=== PATIENT | female | born 1960 | race Caucasian/White ===

== ENCOUNTER 2020-07-13 15:26 | Outpatient (REF) | payer BC, SELFPAY ==
--- NOTE | 2020-07-13 14:40 | PAPFT_PTH ---
PATIENT: Jeanna Perdomo LOC: [facility] U#:[id number] AGE/SX: 60/F ROOM: RE07/13/[address]: Jenn Sanches : 1960 BED: DIS: 07/13/2020 SPEC #: [id number] RECD: 07/14/20 12:43 STATUS: SIDNEY REQ #: [id number] REMA: 07/13/20 14:[address]: Jenn Renee DEPT: [facility] Cytology RECD BY: Lavinia Rutledge ENTERED: 07/14/20 12:43 SP TYPE: PAPFT OTHR DR: Mando Espinosa Tissues: 1 - CX/ENDOCX FOR PAP SMEARS Procedures: PAP THIN PREP/[facility] Screening Comments: [id number] (UNSATISFACTORY FOR EVALUATION)
[2020-07-13 21:19] LABS: HCT 39.3 % (36.0-46.0); HGB 13.3 g/dL (11.2-15.7); MCH 32.2 pg (27.0-33.0); MCHC 33.8 % (32.0-36.0); MCV 95.2 fL (80-95); MPV 11.3 fL (8.0-11.0); Platelet Count 249 10^3/uL (130-400); RBC 4.13 10^6/uL (3.93-5.22); RDW 11.6 % (11.7-14.6); RDW-SD 40.3 fL; WBC 6.15 10^3/uL (4.4-10.8)
[2020-07-13 21:42] LABS: ALT 38 U/L (14-59); AST 21 U/L (15-37); Alkaline Phosphatase 56 U/L (46-116); Anion Gap 6.2 mmol/L (3-11); BUN 16 mg/dL (7-18); Bilirubin, Total 0.5 mg/dL (0.2-1.0); CO2 29.8 mmol/L (21.0-32.0); CREATININE 0.7 mg/dL (0.55-1.02); Calcium 9.5 mg/dL (8.5-10.1); Calculated LDL 104 mg/dL (<100); Chloride 104 mmol/L (98-107); Cholesterol 241 mg/dL (<200); Glucose 83 mg/dL (74-106); HDL Cholesterol 129 mg/dL (40-60); Sodium 140 mmol/L (136-145); TSH (W/Ref FT4) 1.02 uIU/mL (0.36-3.74); Total Protein 7.4 g/dL (6.4-8.2); Triglyceride 41 mg/dL (<150)
[2020-07-13 21:47] LABS: Hemoglobin A1C 5.3 % (<5.7)
== END 2020-07-13 15:27 | disposition home or self-care (01) ==
LOC: NCHCN 15:26
PROVIDERS: PCP Internal Medicine; Visit Provider Nurse Practitioner Family
DX: Z12.4 Encounter for screening for malignant neoplasm of cervix (principal); Z00.00 Encounter for general adult medical examination without abnormal findings; Z13.29 Encounter for screening for other suspected endocrine disorder; Z13.1 Encounter for screening for diabetes mellitus; R87.615 Unsatisfactory cytologic smear of cervix
CPT/HCPCS: 80053; 80061; 85027; 88142; 83036; 84443

== ENCOUNTER 2020-12-14 17:45 | Outpatient (REF) | payer BC, SELFPAY ==
--- NOTE | 2020-12-14 15:30 | PAPFT_PTH ---
PATIENT: Jeanna Perdomo LOC: [facility] U#:[id number] AGE/SX: 60/F ROOM: RE12/14/[address]: Jenn Sanches : 1960 BED: DIS: 12/14/2020 SPEC #: [id number] RECD: 12/15/20 12:56 STATUS: SIDNEY REAdelita #: [id number] REMA: 12/14/20 15:[address]: Jenn Renee DEPT: [facility] Cytology RECD BY: Lavinia Rutledge ENTERED: 12/15/20 12:56 SP TYPE: PAPFT OTHR DR: Mando Espinosa Tissues: 1 - CX/ENDOCX FOR PAP SMEARS Procedures: PAP THIN PREP/[facility] Screening HPV DNA PROBE Comments: [id number]
== END 2020-12-14 17:46 | disposition home or self-care (01) ==
LOC: LBN 17:45
PROVIDERS: PCP Internal Medicine; Visit Provider Nurse Practitioner Family
DX: Z00.00 Encounter for general adult medical examination without abnormal findings (principal); Z12.4 Encounter for screening for malignant neoplasm of cervix; Z11.51 Encounter for screening for human papillomavirus (HPV)
CPT/HCPCS: 88142; 87624

== ENCOUNTER 2023-08-07 17:59 | Outpatient (REF) | payer BC, SELFPAY ==
--- NOTE | 2023-08-07 08:30 | SKI_PTH ---
PATIENT: Jeanna Perdomo LOC: [facility] U#:[id number] AGE/SX: 63/F ROOM: RE08/07/[address]: Jenn Sanches : 1960 BED: DIS: 08/07/2023 SPEC #: [id number] RECD: 08/07/23 18:09 STATUS: SIDNEY CALVERT #: [id number] REMA: 08/07/23 08:[address]: Jenn Renee DEPT: Surgical Specimen RECD BY: Lavinia Rutledge ENTERED: 08/07/23 18:13 SP TYPE: ELBA HAGAN DR: Mando Espinosa Tissues: 1 - SKIN BIOPSY(SHAVE/PUNCH) 2 - SKIN BIOPSY(SHAVE/PUNCH) Procedures: SKIN LEVEL 4 Comments: [id number]
== END 2023-08-07 18:00 | disposition home or self-care (01) ==
LOC: NCHCN 17:59
PROVIDERS: PCP Internal Medicine; Visit Provider Nurse Practitioner Family
DX: C43.61 Malignant melanoma of right upper limb, including shoulder (principal)
CPT/HCPCS: 88305

== ENCOUNTER 2024-09-23 13:04 | Outpatient (REF) | payer BC, SELFPAY ==
[2024-09-23 16:56] LABS: HCT 42.6 % (36.0-46.0); HGB 14.4 g/dL (11.2-15.7); MCH 32.3 pg (27.0-33.0); MCHC 33.8 % (32.0-36.0); MCV 96 fL (80-95); Platelet Count 257 10^3/uL (130-400); RBC 4.46 10^6/uL (3.93-5.22); RDW 11.8 % (11.7-14.6); RDW-SD 41.1 fL; WBC 4.49 10^3/uL (4.4-10.8)
[2024-09-23 17:48] LABS: ALT 26 U/L (14-59); AST 29 U/L (15-37); Albumin 4.2 g/dL (3.4-5.0); Alkaline Phosphatase 63 U/L (46-116); Anion Gap 6.4 mmol/L (3-11); BUN 13 mg/dL (7-18); Bilirubin, Total 0.6 mg/dL (0.2-1.0); CO2 29.6 mmol/L (21.0-32.0); CREATININE 0.7 mg/dL (0.55-1.02); Calcium 9.8 mg/dL (8.5-10.1); Calculated LDL 94 mg/dL (<100); Chloride 104 mmol/L (98-107); Cholesterol 226 mg/dL (<200); Estimated GFR 95.92 (mL/min/1.73m2); Glucose 93 mg/dL (74-106); HDL Cholesterol 121 mg/dL (>or=50); Potassium 4.1 mmol/L (3.5-5.1); Sodium 140 mmol/L (136-145); Total Protein 7.7 g/dL (6.4-8.2); Triglyceride 56 mg/dL (<150)
[2024-09-24 10:07] LABS: Hepatitis C Ab w Rflx HCV PCR Negative (Negative)
== END 2024-09-23 13:05 | disposition home or self-care (01) ==
LOC: NCHCN 13:04
PROVIDERS: PCP Internal Medicine; Visit Provider Nurse Practitioner Family
DX: Z13.220 Encounter for screening for lipoid disorders (principal); Z13.0 Encounter for screening for diseases of the blood and blood-forming organs and certain disorders involving the immune mechanism; Z11.9 Encounter for screening for infectious and parasitic diseases, unspecified; Z13.228 Encounter for screening for other metabolic disorders
CPT/HCPCS: 80053; 80061; 85027; 86803; 84443